=== PATIENT | female | born 1975 | race Caucasian/White ===

== ENCOUNTER 2017-01-31 10:45 | Day surgery (SDC) | payer OTHER ==
[2017-01-29 17:13] VITALS: BMI 26.5
[2017-01-31] MEDS ORDERED: IBUPROFEN 400 MG TABLET (FP) PO PRN (12:17)
[2017-01-31] MEDS ORDERED: oxyCODONE HCL 5 MG TABLET PO PRN ×2 (12:17→13:38)
[2017-01-31] MEDS ORDERED: ACETAMINOPHEN 325 MG TABLET (FP) PO PRN (12:17)
[2017-01-31] MEDS ORDERED: ONDANSETRON 4 MG/2 ML VIAL IVPUSH PRN ×2 (12:18→13:38)
--- NOTE | 2017-01-31 12:39 | HP ---
Admitting History and Physical - Admission History of Present Illness: 32 yo with hx/o menorrhagia, irregular menses for hysteroscopy, D&C Patient reports intermittent, heavy bleeding for the past 2 months She underwent a CT in [place] that revealed a thickened endometrium and ovarian cyst Repeat ultrasound on 01/18 revealed an anteverted uterus measuring 9.6 cm and a endometrial lining measuring 20.7 cm. The right ovary had a domminant follicle with no adnexal masses. The patient desired surgical management. History Source: Patient Limitations to Obtaining History: No Limitations, Other (Language barrier) - Past Medical History Cardiovascular: No: HTN Pulmonary: No: Asthma Gastrointestinal: No: GERD ...LMP Comment: bleeding since november ...: No ...: 4 ...Para: 3 Heme/Onc: Yes: Anemia - Past Surgical History Past Surgical History: Yes: Appendectomy, Cholecystectomy, - Smoking History Smoking history: Never smoked - Alcohol/Substance Use Hx Alcohol Use: No - Social History History of Recent Travel: Yes (Recently moved from [place] 2 months ago) Home Medications - Allergies Allergies/Adverse Reactions: Allergies Allergy/AdvReac Type Severity Reaction Status Date / Time No Known Allergies Allergy Verified 01/29/17 17:00 - Home Medications Home Medications: Ambulatory Orders Ferrous Sulfate [Feosol] 325 mg PO BID 01/29/17 Family Disease History - Family Disease History Family History: Denies Review of Systems - Review of Systems Constitutional: reports: No Symptoms HENT: reports: No Symptoms Neck: reports: No Symptoms Cardiovascular: reports: No Symptoms Respiratory: reports: No Symptoms Gastrointestinal: reports: No Symptoms Genitourinary: reports: No Symptoms Breasts: reports: No Symptoms Reported Musculoskeletal: reports: No Symptoms Endocrine: reports: No Symptoms Hematology/Lymphatic: reports: No Symptoms Psychiatric: reports: No Symptoms Physical Examination Vital Signs: Vital Signs Temperature 98.3 F 01/31/17 11:06 Pulse Rate 73 01/31/17 11:06 Respiratory Rate 18 01/31/17 11:06 Blood Pressure 121/76 01/31/17 11:06 O2 Sat by Pulse Oximetry (%) 99 01/31/17 11:06 Constitutional: Yes: Well Nourished, No Distress, Calm Neck: Yes: Supple Cardiovascular: Yes: Regular Rate and Rhythm Respiratory: Yes: Regular, CTA Bilaterally Gastrointestinal: Yes: Normal Bowel Sounds, Soft Edema: No Integumentary: Yes: WNL Wound/Incision: Yes: Unapproximated Neurological: Yes: Alert ...Motor Strength: WNL Psychiatric: Yes: Alert, Oriented Imaging - Results Ultrasound: Image Reviewed (Transabdominal and transvaginal ultrasound was performed and revealed a 9.6 cm anteflexed uterus normal in texture. The endometrium appears hyperechoic and thickened measuring 20.7 mm.The right ovary contains a dominant follicle measuring 2.1 x 2.3 x 2.0 cm. The left ovary appears unremarkable. No adnexal masses were seen at this time however the scan was limited by large amounts of bowel gas.) Assessment/Plan 41 yo with menorrhagia, irregular menses for hysteroscopy, D&C 1. Consents reviewed and signed with grievance and appeals coordinator. Reviewed risks including infection, bleeding, uterine perforation, damage to surrounding organs such as bowel, bladder and ureters 2. No antibiotics indicated 3. will proceed to OR
[2017-01-31] MEDS ORDERED: LIDOCAINE HCL/PF 2% SDV 5ML VIAL ONE (12:50)
[2017-01-31] MEDS ORDERED: PROPOFOL 20 ML ONE (12:50)
[2017-01-31] MEDS ORDERED: MIDAZOLAM HCL 2 MG/2 ML SINGLE DOSE VIAL ONE ×2 (12:50)
[2017-01-31] MEDS ORDERED: PROMETHAZINE HCL 25 MG/1 ML VIAL IVPUSH PRN (13:38)
--- NOTE | 2017-01-31 13:43 | OP ---
Operative Note - Note: Operative Date: 01/31/17 Pre-Operative Diagnosis: menorrhagia, irregular menses Operation: hysteroscopy, dilation and curettage Findings: uterus with multiple endometrial polyps Post-Operative Diagnosis: Same as Pre-op Surgeon: Angeles Gentile Anesthesiologist/METAL BUFFER: Aftab Brumfield Anesthesia: MAC Estimated Blood Loss (mls): 5 Drains & Tubes with Location: fluid deficit 50 Fluid Volume Replaced (mls): 500 Operative Report Dictated: Yes
[2017-01-31 16:01] VITALS: BP 123/73; PULSE 67
[2017-01-31 17:11] VITALS: TEMP 98.3
--- NOTE | 2017-02-01 10:19 | OP ---
DATE OF OPERATION: 01/31/2017 SURGEON: Pedro Gentile M.D. PREOPERATIVE DIAGNOSIS: Menorrhagia and irregular bleeding. POSTOPERATIVE DIAGNOSIS: Menorrhagia and irregular bleeding. ANESTHESIOLOGIST: Aftab Brumfield M.D. ANESTHESIA: MAC. ESTIMATED BLOOD LOSS: 5 mL. URINE OUTPUT: Not recorded. INTRAVENOUS FLUIDS GIVEN: 500. FLUID DEFICIT: 50. INDICATION: Patient is a 41-year-old 4, para 3 with history of menorrhagia and irregular bleedings with findings of a thickened endometrium on ultrasound. She was counseled regarding medical and surgical management. Risks, benefits, and alternatives and complications of the procedure were discussed including infection, bleeding, damage to surrounding organs such as bowel, bladder, ureters. She expressed understanding, was brought to operating room. DESCRIPTION OF PROCEDURE: When anesthesia was found to be adequate, patient was prepped and draped in normal sterile fashion. Patient was placed in the dorsal lithotomy position using Joey stirrups. A Mejia retractor was placed in the posterior portion of the patient's vagina, and Mejia retractor was placed on the anterior portion of the patient's vagina. The cervix was grasped using an Allis clamp, and the cervix was found to be dilated. Hysteroscope was placed. A large amount of polypoid tissue was noted. Gentle, sharp curetting was performed, with removal of a large amount of polypoid appearing tissue. A post-curettage hysteroscopy was performed and good removal of tissue was noted without perforation. All instruments removed from the patient's vagina. Patient was awoken from anesthesia, was brought to recovery room in stable condition. PEDRO GENTILE M.D. [id number] MTDD
--- NOTE | 2017-02-02 11:44 | PATH ---
Surgical Pathology Report Patient Name: ADELINA ZHONG [facility]. Rec. #: [id number] /Age/Gender: 1975 (Age: 41) / F Account: [id number] Location: [facility] SURGICAL Taken: 01/31/2017 Received: 02/01/2017 Reported: 02/02/2017 Physicians: Angeles Gentile Specimen(s) Received ENDOMETRIAL CURETTINGS AND POLYPS Clinical History Menorrhagia irregular Final Diagnosis ENDOMETRIUM, CURETTING AND POLYPECTOMY: DISORDERED PROLIFERATIVE ENDOMETRIUM WITH AREAS OF STROMAL AND GLANDULAR BREAKDOWN, AND AREAS SUGGESTIVE OF BENIGN ENDOMETRIAL POLYP. Electronically Signed Naun Bynum M.D. Gross Description Received in formalin labeled "endometrial curettings and polyp," is a 4.0 x 3.8 x 0.8 cm aggregate of gold-brown soft tissue fragments. The formalin is filtered and the specimen is entirely submitted in 4 cassettes. /02/01/2017 saudi/02/01/2017
== END 2017-01-31 16:15 | disposition home or self-care (01) ==
LOC: JASU-SURG 10:45
PROVIDERS: ATTEND Obstetrics & Gynecology
PROC: 0UDB8ZX Extraction of Endometrium, Via Natural or Artificial Opening Endoscopic, Diagnostic (ICD-10-PCS; principal; 2017-01-31 12:30)
DX: N92.0 Excessive and frequent menstruation with regular cycle (principal)
CPT/HCPCS: 84703; 86850; 86900; 86901; 88305-TC; 94760